=== PATIENT | male | born 1975 | race Caucasian/White ===

== ENCOUNTER 2023-01-29 10:55 | Outpatient (OUT) | payer OTHER, SELFPAY ==
--- NOTE | 2023-01-29 11:09 | US_ITS ---
The [address] [address] Patient Name: CARRIE FLANNERY MRN: [id number] date: 1975 Sex: M Assigned Patient Location: [place] Current Patient Location: [place] Accession/Order Number: [id number] Exam Date: 01/29/2023 11:20 Report Date: 01/29/2023 13:07 At the request of: HIEN CASTAÑEDA Procedure: US renal BI EXAMINATION: US renal BI HISTORY: Flank Pain COMPARISON: CT abdomen pelvis 09/06/2022 TECHNIQUE: Ultrasound examination was performed of the kidneys and urinary bladder. FINDINGS: RIGHT KIDNEY: Benign-appearing 1.6 and meter cyst within superior pole. No evidence of pelvocaliectasis, mass, or calculi. Normal renal cortical parenchymal echogenicity. Color Doppler demonstrates blood flow within the kidney. Kidney: 10.4 x 4.2 x 4.1 cm LEFT KIDNEY: Contain several nonobstructing stones, largest is 11 mm. No appreciable mass or cysts. Normal renal cortical parenchymal echogenicity. Color Doppler demonstrates blood flow within the kidney. Kidney: 4.6 x 5.5 x 4.67 m BLADDER: No visible wall thickening, mass, or calculi. US/US renal BI IMPRESSION: 1. Benign-appearing right renal cyst; no additional follow-up recommended at this time. 2. Nonobstructing left nephrolithiasis. 3. Unremarkable urinary bladder. Electronically authenticated by: TERESA JUÁREZ Date: 01/29/2023 13:07
== END 2023-01-29 10:56 | disposition home or self-care (01) ==
LOC: US 10:55
PROVIDERS: Visit Provider Urology
DX: N13.2 Hydronephrosis with renal and ureteral calculous obstruction (principal)
CPT/HCPCS: 76775